=== PATIENT | male | born 1975 | race Caucasian/White ===

== ENCOUNTER 2017-06-19 21:46 | Emergency (ER) | payer SELFPAY ==
[2017-06-19 21:53] VITALS: BMI 34.4
[2017-06-19] MEDS ORDERED: ASPIRIN PO ONE (22:48)
[2017-06-19] MEDS ORDERED: NITROSTAT SL PRN (22:48)
--- NOTE | 2017-06-19 22:51 | DR.GENAD ---
HPI - PCP Primary Care Physician: MAGALY - Complaint/Symptoms Chief Complaint Doctors Comments: Patient complains of a diffuse headache, elevated blood pressure with xiphoid chest pain for the past 1- 1 1/2 weeks getting worst tonight. States he was at the hospital in Wednesday with elevated blood pressure and they kept him for a while and sent him home. States he has been monitering his blood presuure at home and it was 148/109 before coming to the emergency room. States the pain in his head is 6 of 10. He is having xiphoid pain that is dull and tight at times. He is a patient of Dr. Moon and he smokes 3/4 packs cigarettes daily. States he stopped drinking over a year ago. He denies any recent trauma. Chief Complaint:: "I HAVE A HEADACHE, MY BLOOD PRESSURE IS UP AND MY CHEST HURTS. CHEST TIGHTNESS." - Nurses notes reviewed Nurses Notes Review: Yes - Source History Provided: Patient - Mode of Arrival Mode of Arrival: Ambulatory - Timing Onset of Chief Complaint: 06/12/17 Came on: Gradually - Duration Duration: Constant How lon Duration: Days - Modifying Factors Worsens:: xiphoid chest pain and diffuse headache PMH - PMH Past Medical History: Yes Past Medical History: Headaches, Hypertension Past Surgical History: Yes Surgical History: Ortho Surgery - Family History History of Family Medical Conditions: Yes Family Medical History: Diabetes Mellitus, Hypertension - Social History Type of Tobacco Use: Cigarettes Alcohol Use: None Do you use any recreational Drugs:: No Lives With: Spouse Lives Where: Home - infectious screening Have you traveled outside the country in the last 6 months?: No Isolation: Standard ROS - Review of Systems Constitutional: No Symptoms Reported. negative: See HPI, Chills, Diaphoresis, Fever, Malaise, Weakness, Irritable, Fatigue, Loss of Appetite, Other Eyes: No Symptoms Reported, Blurred Vision. negative: See HPI, Eye Pain, Tearing, Discharge, Photophobia, Diplopia, Other ENTM: No Symptoms Reported. negative: See HPI, Ear Pain, Ear Discharge, Pulling on Ears, Hearing Loss, Nose Pain, Nose Discharge, Epistaxis, Nose Congestion, Mouth Pain, Mouth Swelling, Loose Teeth, Drooling, Throat Pain, Throat Swelling, Ear Foreign Body Respiratoy: No Symptoms Reported Cardiovascular: No Symptoms Reported, Chest Pain. negative: See HPI, Edema, Palpitations, Syncope, Cyanosis, Skin Mottling, Other Gastrointestinal/Abdominal: No Symptoms Reported. negative: See HPI, Abdominal Pain, Constipation, Diarrhea, Nausea, Vomiting, Food Intolerance, Other Genitourinary: No Symptoms Reported. negative: See HPI, Discharge, Dysuria, Frequency, Hematuria, Pain, Bleeding, Other Neurological: No Symptoms Reported, Headache. negative: See HPI, Anxiety, Depressed, Emotional Problems, Numbness, Paresthesia, Pre-existing Deficit, Seizure, Tingling, Tremors, Weakness, Dizziness, Problems Walking, Speech Problem, Other Musculoskeletal: No Symptoms Reported Integumentary: No Symptoms Reported. negative: See HPI, Change in Color, Change in Hair/Nails, Dryness, Lesions, Lumps, Rash, Itching, Wound, Bruises, Juandice, Other Hematologic/Lymphatic: No Symptoms Reported. negative: See HPI, Anemia, Blood Clots, Easy Bleeding, Easy Bruising, Swollen Glands, Lymphadenopathy, Other Endocrine: No Symptoms Reported Psychiatric: No Symptoms Reported PE - Vital Signs Vitals: Temperature 97.8 F Pulse Rate [Brachial] 87 Pulse Rate 110 Respiratory Rate 21 Blood Pressure [Right Arm] 156/95 Blood Pressure 133/97 O2 Sat by Pulse Oximetry 95 - General Limitations: No Limitations General Appearance: Alert, In Distress (mild) - Head Head Exam: Normal Inspection, Atraumatic, Normocephalic - Eyes Eye exam: Normal Appearance, PERRL, EOMI. negative: Scleral Icterus, Conjunctival Injection, Nystagmus, Miosis, Mydrasis, Periorbital Swelling, Periorbital Tenderness, Other - ENT ENT Exam: Normal Exam, Normal Oropharynx, Normal External Ear Exam, Mucous Membranes Moist, TM's Normal Bilaterally (collar flower ears) External Ear Exam: Normal External Inspection, Auricular Trauma (collar flower ears bilaterally) TM/Canal Exam: Bilateral Normal Nose Exam: Normal Nose Exam Mouth Exam: Normal Inspection. negative: Drooling, Trismus, Lip Swelling, Tongue Elevation, Tongue Swelling, Laceration, Other Throat Exam: Normal Inspection - Neck Neck Exam: Normal Inspection, Full ROM, Trachea Midline - Chest Chest Inspection: Normal Inspection, Symmetric Chest Wall Rise - Respiratory Respiratory Exam: Normal Lung Sounds Bilat Respiratory Exam: Bilateral Clear to Auscultation - Cardiovascular Cardiovascular Exam: Regular Rate, Normal Rhythm, Normal Heart Sounds - Abdominal Exam Abdominal Exam: Normal Inspection, Normal Bowel Sounds, Soft Abdominal Tenderness: negative: RUQ, RLQ, LUQ, LLQ, Epigastrium, Suprapubic, Diffuse, Mild, Moderate, Severe, Other - Extremities Extremities Exam: Normal Inspection, Full ROM, Normal Capillary Refill. negative: Tenderness, Edema, Joint Swelling, Calf Tenderness, Other - Back Back Exam: Normal Inspection, Full ROM - Neurologic Neurological Exam: Alert, Oriented X3, CN II-XII Intact, Normal Gait, Reflexes Normal - Psychiatric Psychiatric Exam: Normal Affect, Normal Mood - Skin Skin Exam: Warm, Dry, Intact, Normal Color Course - Reevaluation 1st: Improved - Consultation Called: 01:33 - Education/Counseling Education/Counseling: Patient, Family Educated On: Treatment, Diagnosis, Prognosis, Needs for Follow Up (Patient states his chest pain has resolved and his headache has improved will follow up with Dr. Moon for bllod pressure and glucose check.) ROR - Labs Reviewed Laboratory Results Reviewed?: Yes (all labs and x-ray results reviewed and discussed with patient and ) Result Diagrams: 06/19/17 23:00 06/19/17 23:00 Laboratory: WBC 9.5 X10^3/uL (3.6-10.0) 06/19/17 23:00 RBC 5.42 X10^6/uL (4.7-6.0) 06/19/17 23:00 Hgb 16.8 g/dL (13.5-18.0) 06/19/17 23:00 Hct 48.1 % (42.0-54.0) 06/19/17 23:00 MCV 88.7 fL (80.0-100.0) 06/19/17 23:00 MCH 31.1 pg (27.0-34.0) 06/19/17 23:00 MCHC 35.0 g/dL (33.0-35.0) 06/19/17 23:00 RDW 13.2 % (11.6-16.5) 06/19/17 23:00 Plt Count 194 X10^3/uL (150.0-450.0) 06/19/17 23:00 MPV 9.6 fL (7.4-11.0) 06/19/17 23:00 Neut % 52.7 % (42.0-75.0) 06/19/17 23:00 Lymph % 34.4 % (21.0-51.0) 06/19/17 23:00 [place] % 9.7 % (0.0-13.0) 06/19/17 23:00 Eos % 2.8 % (0.9-2.9) 06/19/17 23:00 Baso % 0.4 % (0.2-1.0) 06/19/17 23:00 Neut # 5.0 x10^3/uL (2.2-4.8) H 06/19/17 23:00 Lymph # 3.3 X10^3/uL (1.3-2.9) H 06/19/17 23:00 [place] # 0.9 x10^3/uL (0.3-0.8) H 06/19/17 23:00 Eos # 0.3 x10^3/uL (0.0-0.2) H 06/19/17 23:00 Baso # 0.0 X10^3/uL (0.0-0.1) 06/19/17 23:00 Absolute Nucleated RBC 0.1 /100WBC 06/19/17 23:00 INR Target Range - 06/19/17 23:00 INR 1.03 (0.8-1.3) 06/19/17 23:00 PTT 29.7 SECONDS (22.9-36.5) 06/19/17 23:00 PTT Comment - 06/19/17 23:00 D-Dimer 151 ng/mL (0-400) 06/19/17 23:00 Sodium 139 mmol/L (136-145) 06/19/17 23:00 Corrected Sodium 140 mmol/L (136-145) 06/19/17 23:00 Potassium 3.8 mmol/L (3.5-5.1) 06/19/17 23:00 Chloride 102 mmol/L (98-107) 06/19/17 23:00 Carbon Dioxide 28.0 mmol/L (21-32) 06/19/17 23:00 BUN 15 mg/dL (7-18) 06/19/17 23:00 Creatinine 1.11 mg/dL (0.70-1.30) 06/19/17 23:00 Est GFR (MDRD) Af Amer > 60 (>60) 06/19/17 23:00 Est GFR (MDRD) Non-Af > 60 (>60) 06/19/17 23:00 Glucose 153 mg/dL (65-99) H 06/19/17 23:00 Calcium 8.9 mg/dL (8.5-10.1) 06/19/17 23:00 Corrected Calcium TNP 06/19/17 23:00 Magnesium 1.8 mg/dL (1.7-2.9) 06/19/17 23:00 Total Bilirubin 0.50 mg/dL (0.2-1.0) 06/19/17 23:00 AST 40 Units/L (15-37) H 06/19/17 23:00 ALT 104 Units/L (12-78) H 06/19/17 23:00 Alkaline Phosphatase 135 Units/L (46-116) H 06/19/17 23:00 Creatine Kinase 142 Units/L (39-308) 06/19/17 23:00 CK-MB (CK-2) < 1.0 ng/mL (0-4.0) 06/19/17 23:00 CK/CKMB % Calc 0.7 % (<4) 06/19/17 23:00 Troponin I < 0.02 ng/mL (0-1.5) 06/19/17 23:00 Total Protein 8.0 g/dL (6.4-8.2) 06/19/17 23:00 Albumin 3.9 g/dL (3.4-5.0) 06/19/17 23:00 Globulin 4.1 g/dL (2.5-4.5) 06/19/17 23:00 Albumin/Globulin Ratio 1.0 Ratio (1.1-2.1) L 06/19/17 23:00 Urine Opiates Screen Negative (NEG=<300) 06/20/17 00:05 Urine Methadone Screen Negative (NEG=<300) 06/20/17 00:05 Ur Barbiturates Screen Negative (NEG=<200) 06/20/17 00:05 Ur Phencyclidine Scrn Negative (NEG=<25) 06/20/17 00:05 Ur Amphetamines Screen Negative (NEG=<1000) 06/20/17 00:05 U Benzodiazepines Scrn Positive (NEG=<200) 06/20/17 00:05 Urine Cocaine Screen Negative (NEG=<300) 06/20/17 00:05 U Marijuana (THC) Screen Negative (NEG=<50) 06/20/17 00:05 Ethyl Alcohol mg/dL < 3 mg/dL (0-19.9) 06/19/17 23:00 - XRAY XRAY Interpreted by: Radiologist (CT brain: Normal brain CT examination) XRAY Findings: CXR: no radiographic evidence of an acute cardiopulmonary process - EKG Rate: 102 Anna: Normal Rhythm: NSR Hypertrophy: LAE ST: Nonsp - Diagnosis Discharge Problem: Chest pain, Hyperglycemia, Hypertension, Tachycardia Headache Qualifiers: Headache type: unspecified - Discharge Plan Disposition: HOME, SELF-CARE Condition: Stable Prescriptions: Atenolol [TENORMIN 25 mg *] 25 mg PO DAILY #30 tab - Follow ups/Referrals Follow ups/Referrals: Bon Moon [Primary Care Provider] - 3 days - Instructions Instructions: Nonspecific Chest Pain, Hypertension, Hyperglycemia, Sinus Tachycardia
[2017-06-19] MEDS ORDERED: ASPIRIN ONE (22:54)
[2017-06-19] MEDS ORDERED: NS 1000 ML 1,000 ML IV SCH (23:00)
--- NOTE | 2017-06-19 23:07 | RAD ---
HISTORY: Chest pain Study: AP chest Comparison:NONE Findings: The lungs are clear. No consolidation. There are no pleural effusions. The kayla and cardiomediastinal silhouette appear normal. IMPRESSION: 1. No radiographic evidence of an acute cardiopulmonary process. Reported By:
[2017-06-19 23:18] LABS: BASOPHILS % (AUTO) 0.4 % (0.2-1.0); EOSINOPHILS # (AUTO) 0.3 x10^3/uL (0.0-0.2); EOSINOPHILS % (AUTO) 2.8 % (0.9-2.9); HEMATOCRIT 48.1 % (42.0-54.0); HEMOGLOBIN 16.8 g/dL (13.5-18.0); LYMPHOCYTES # (AUTO) 3.3 X10^3/uL (1.3-2.9); LYMPHOCYTES % (AUTO) 34.4 % (21.0-51.0); MEAN CORPUSCULAR HEMOGLOBIN 31.1 pg (27.0-34.0); MEAN CORPUSCULAR VOLUME 88.7 fL (80.0-100.0); MEAN PLATELET VOLUME 9.6 fL (7.4-11.0); MONOCYTES # (AUTO) 0.9 x10^3/uL (0.3-0.8); MONOCYTES % (AUTO) 9.7 % (0.0-13.0); NEUTROPHILS % (AUTO) 52.7 % (42.0-75.0); PLATELET COUNT 194 X10^3/uL (150.0-450.0); RED BLOOD COUNT 5.42 X10^6/uL (4.7-6.0); RED CELL DISTRIBUTION WIDTH 13.2 % (11.6-16.5); WHITE BLOOD COUNT 9.5 X10^3/uL (3.6-10.0)
[2017-06-19 23:30] LABS: BLOOD UREA NITROGEN 15 mg/dL (7-18); CALCIUM 8.9 mg/dL (8.5-10.1); CHLORIDE 102 mmol/L (98-107); COR NA(FOR HYPERGLY) 140 mmol/L (136-145); CREATININE 1.11 mg/dL (0.70-1.30); GLUCOSE 153 mg/dL (65-99); SODIUM 139 mmol/L (136-145); TROPONIN I < 0.02 ng/mL (0-1.5); eGFR BLACK RACES > 60 (>60); eGFR NON BLACK RACES > 60 (>60)
[2017-06-19 23:34] LABS: ALANINE AMINOTRANSFERASE 104 Units/L (12-78); ALBUMIN 3.9 g/dL (3.4-5.0); ALKALINE PHOSPHATASE 135 Units/L (46-116); ASPARTATE AMINO TRANSFERASE 40 Units/L (15-37); CKMB % 0.7 % (<4); CREATINE KINASE 142 Units/L (39-308); CREATINE KINASE MB < 1.0 ng/mL (0-4.0); MAGNESIUM 1.8 mg/dL (1.7-2.9)
--- NOTE | 2017-06-19 23:34 | CT ---
EXAM: CT BRAIN WITHOUT CONTRAST INDICATION: Headache COMPARISION: No Priors TECHNIQUE: Routine axial CT of the brain was performed without intravenous contrast. FINDINGS: The cerebral and cerebellar cortex are normal. The ventricular system is nondilated. No intra or ext ra-axial mass or hemorrhage. The tyler-white junction is preserved. There is no evidence of subacute ischemic change. The basilar cisterns are clear. The skull is intact. The mastoid air cells are clear. IMPRESSION: Normal brain CT examination Reported By:
[2017-06-19 23:38] LABS: BLOOD ALCOHOL < 3 mg/dL (0-19.9)
[2017-06-19 23:44] LABS: D DIMER 151 ng/mL (0-400)
[2017-06-20] MEDS ORDERED: TORADOL 30 MG VIAL IVP ONE (00:44)
[2017-06-20] MEDS ORDERED: TORADOL 60 MG VIAL IM ONE (00:44)
[2017-06-20] MEDS ORDERED: TORADOL 30 MG VIAL ONE ×2 (00:45→00:47)
[2017-06-20] MEDS ORDERED: TENORMIN PO STA (01:32)
[2017-06-20 01:43] VITALS: BP 116/72
== END 2017-06-20 01:50 | disposition home or self-care (01) ==
LOC: ER 21:46
DX: R07.89 Other chest pain (principal); I10 Essential (primary) hypertension; R00.0 Tachycardia, unspecified
CPT/HCPCS: 36415; 70450; 71010; 80053; 80307; 80320; 82550; 82553; 83735; 84484; 85025; 85378; 85610; 85730; 93005; 96372; 99283; G0434; G6040; J1885

== ENCOUNTER 2017-11-25 14:57 | Emergency (ER) | payer SELFPAY ==
[2017-11-25 15:05] VITALS: BMI 34.4
[2017-11-25] MEDS ORDERED: TORADOL 60 MG VIAL IM ONE (17:22)
[2017-11-25] MEDS ORDERED: TORADOL 60 MG VIAL ONE (17:22)
--- NOTE | 2017-11-25 17:23 | DR.GENAD ---
HPI - PCP Primary Care Physician: NFD - Complaint/Symptoms Chief Complaint Doctors Comments: patient states that he fell onto his right knee a couple days ago now there is swelling and pain of the medial right knee. Unable to bear weight Chief Complaint:: FELL A COUPLE DAYS AGO AND HURT HIS RIGHT KNEE. IT HAS WORSED AND BEGINNING TO SWELL SINCE. PATIENT HAS IT WRAPPED WITH GUILLE WRAP - Source History Provided: Patient - Mode of Arrival Mode of Arrival: Wheelchair - Timing Onset of Chief Complaint: 11/20/17 PMH - PMH Past Medical History: Yes Past Medical History: Headaches, Hypertension Past Surgical History: Yes Surgical History: Ortho Surgery - Family History History of Family Medical Conditions: Yes Family Medical History: Diabetes Mellitus, Hypertension - Social History Does patient currently use any type of tobacco product: Yes Have you used tobacco products in the last 12 months: Yes Type of Tobacco Use: Cigarettes Does any household member use tobacco: No Alcohol Use: Occasionally Do you use any recreational Drugs:: No Lives With: Family Lives Where: Home - infectious screening In the last 2 months have you had wt loss of >10#?: NO Have you had fever, night sweats or hemotysis?: No Have you traveled outside the country in the last 6 months?: No Isolation: Standard ROS - Review of Systems Eyes: No Symptoms Reported ENTM: No Symptoms Reported Respiratoy: No Symptoms Reported Cardiovascular: No Symptoms Reported Gastrointestinal/Abdominal: No Symptoms Reported Genitourinary: No Symptoms Reported Neurological: No Symptoms Reported Musculoskeletal: Knee (right pain) Integumentary: No Symptoms Reported Hematologic/Lymphatic: No Symptoms Reported Endocrine: No Symptoms Reported Psychiatric: No Symptoms Reported All Other Systems: Reviewed and Negative PE - Vital Signs Vitals: Temperature 98.2 F Pulse Rate 101 Respiratory Rate 20 Blood Pressure [Right Arm] 116/72 Blood Pressure 186/102 O2 Sat by Pulse Oximetry 99 - General General Appearance: Alert - Head Head Exam: Normal Inspection, Atraumatic - Eyes Eye exam: Normal Appearance, PERRL, EOMI - ENT ENT Exam: Normal Exam External Ear Exam: Normal External Inspection TM/Canal Exam: Bilateral Normal Nose Exam: Normal Nose Exam Mouth Exam: Normal Inspection Throat Exam: Normal Inspection - Neck Neck Exam: Normal Inspection, Full ROM - Chest Chest Inspection: Normal Inspection, Symmetric Chest Wall Rise - Respiratory Respiratory Exam: Normal Lung Sounds Bilat Respiratory Exam: Bilateral Clear to Auscultation - Cardiovascular Cardiovascular Exam: Regular Rate, Normal Rhythm - Abdominal Exam Abdominal Exam: Normal Inspection, Normal Bowel Sounds Abdominal Tenderness: negative: RUQ, RLQ, LUQ, LLQ, Epigastrium, Suprapubic, Diffuse, Mild, Moderate, Severe, Other - Extremities Extremities Exam: Joint Swelling (right knee) - Back Back Exam: Normal Inspection - Neurologic Neurological Exam: Alert, Oriented X3, CN II-XII Intact - Psychiatric Psychiatric Exam: Normal Affect - Skin Skin Exam: Warm, Dry, Intact - Discharge Plan Condition: Stable - Follow ups/Referrals Follow ups/Referrals: NFD,None [Primary Care Provider] - 3 days - Instructions
--- NOTE | 2017-11-25 20:00 | RAD ---
Examination: Right knee, two views History: Fell 2 days ago Findings: No definite fracture, dislocation or patellar displacement. A true lateral view was not obt ained; exclusion of synovial effusion is not confident. There is no evidence for joint space deformit y or asymmetry. Impression: No acute abnormality noted. See above. Reported By:
[2017-11-25] MEDS ORDERED: DEMEROL INJ IM ONE (20:12)
[2017-11-25] MEDS ORDERED: DEMEROL INJ ONE (20:14)
--- NOTE | 2017-11-25 20:41 | RAD ---
Examination: Right foot, three views History: Fell Findings: No definite fracture, dislocation or joint space deformity demonstrated. Impression: No acute findings in the right foot. Reported By:
--- NOTE | 2017-11-25 20:45 | RAD ---
Examination: Right ankle, three views History: Fell Findings: No definite fracture, dislocation or mortise joint asymmetry. There is mild soft tissue swe lling. Impression: No acute osseous injury demonstrated. Reported By:
[2017-11-25 21:46] VITALS: BP 158/80
== END 2017-11-25 21:40 | disposition home or self-care (01) ==
LOC: ER 15:21
DX: S93.401A Sprain of unspecified ligament of right ankle, initial encounter (principal); W19.XXXA Unspecified fall, initial encounter; Y92.9 Unspecified place or not applicable
CPT/HCPCS: 73560; 73610; 73630; 96372; 99282; J1885; J2175